=== PATIENT | female | born 1990 | race Caucasian/White ===

== ENCOUNTER 2017-04-08 14:48 | Emergency (ER) | payer MEDICAID, OTHER ==
[~2017-04-08] VITALS: Ht 162.6 cm; Wt 92.0 kg
[~2017-04-08 14:48] MED LIST: EMTR1TAB5 PO; PREN1CAP7 PO; [UNRECOGNIZED DRUG - CODE] CHEW
[2017-04-08 14:50] VITALS: BP 113/84; PULSE 100; RESP 20; TEMP 97.8; O2SAT 98
[2017-04-08] MEDS ORDERED: ACYC800T PO (15:19)
--- NOTE | 2017-04-08 15:22 | PD ---
HPI Chief Complaint: Skin Problem Time Seen by Provider: 15:06 Travel History International Travel<30 days: No Contact w/Intl Traveler<30days: No Traveled to known affect area: No History of Present Illness HPI PATIENT IS AND FOLLOWS UP WITH OB, HAS HIV WELL AND IS ALREADY ON MEDICATION,....TODAY COMES IN C/O RASH TO TRUNK PRESENT OVER LAST 3 DAYS, NO DISCHARGE PFSH Past Medical History Immune Disorder: Yes (hiv positive ) Immunizations Current: No ?: LMP: 26 weeks Past Surgical History Surgical History: No Previous Surgery Social History Alcohol Use: No Tobacco Use: No Substance Use: No Allergies-Medications (Allergen,Severity, Reaction): Coded Allergies: Codeine (Verified Allergy, Intermediate, UNKNOWN, 04/08/17) Reported Meds & Prescriptions Reported Meds & Active Scripts Active Acyclovir 800 Mg Tab 800 Mg PO 5 TIMES A DAY Citranatal [place] ( W/O Vit A W/ Fe Fumar) 27-1-260 Mg Cap 1 Cap PO DAILY Reported Isentress (Raltegravir) 25 Mg Chew 75 Mg CHEW BID Truvada (Emtricitabine-Tenofovir Disoproxil Fumarate) 100-150 Mg Tab 1 Tab PO DAILY Review of Systems Except as stated in HPI: all other systems reviewed are Neg Skin: Positive Rash Physical Exam Narrative GENERAL: SKIN: Warm and dry. ON RIGHT HEMITHORAX UNDER RIGHT BREAST AND ON BACK AT SAME LEVEL OF T8 HAD A VESICULOPAPULAR RASH C/W HERPES ZOSTER HEAD: Atraumatic. Normocephalic. EYES: Pupils equal and round. No scleral icterus. No injection or drainage. ENT: No nasal bleeding or discharge. Mucous membranes pink and moist. NECK: Trachea midline. No JVD. CARDIOVASCULAR: Regular rate and rhythm. RESPIRATORY: No accessory muscle use. Clear to auscultation. Breath sounds equal bilaterally. GASTROINTESTINAL: Abdomen soft, non-tender, nondistended. Hepatic and splenic margins not palpable. MUSCULOSKELETAL: Extremities without clubbing, cyanosis, or edema. No obvious deformities. NEUROLOGICAL: Awake and alert. No obvious cranial nerve deficits. Motor grossly within normal limits. Five out of 5 muscle strength in the arms and legs. Normal speech. PSYCHIATRIC: Appropriate mood and affect; insight and judgment normal. Data Data Last Documented VS Vital Signs Date Time Temp Pulse Resp B/P Pulse Ox O2 Delivery O2 Flow Rate FiO2 04/08/17 14:50 97.8 100 20 113/84 98 Room Air MDM Medical Decision Making Medical Screen Exam Complete: Yes Emergency Medical Condition: Yes Medical Record Reviewed: Yes Differential Diagnosis FUNGAL RASH V BACTERIAL V VIRAL Narrative Course CONFIRMED WITH PHARMACY THAT IT WAS SAFE TO USE ACYCLOVIR DURING , STATED IT WAS CATEGORY B, AND RELATIVELY SAFE. Diagnosis Primary Impression: ZOSTER Scripts Acyclovir 800 Mg Cqt528 Mg PO 5 TIMES A DAY #40 TAB Ref 0 Prov:Pedro Akins MD 04/08/17 Disposition: 01 DISCHARGE HOME Condition: Stable Pedro Akins MD Apr 08, 2017 15:22
== END 2017-04-08 15:53 | disposition home or self-care (01) ==
LOC: NEPD 14:48
DX: O98.712 Human immunodeficiency virus [HIV] disease complicating pregnancy, second trimester (principal); B20 Human immunodeficiency virus [HIV] disease; O98.512 Other viral diseases complicating pregnancy, second trimester; B02.9 Zoster without complications; Z3A.26 26 weeks gestation of pregnancy
CPT/HCPCS: 99283

== ENCOUNTER → 2017-05-16 | Outpatient (CLI) | payer MEDICAID ==
[~2017-05-16] MED LIST changes: +ACYC800T PO
== END ==
LOC: HPND 09:37
PROVIDERS: ATTEND Obstetrics & Gynecology
DX: O35.8XX0 Maternal care for other (suspected) fetal abnormality and damage, not applicable or unspecified (principal); O98.719 Human immunodeficiency virus [HIV] disease complicating pregnancy, unspecified trimester; O99.213 Obesity complicating pregnancy, third trimester; E66.9 Obesity, unspecified; Z68.34 Body mass index [BMI] 34.0-34.9, adult
CPT/HCPCS: 76811; 76818; 76820; 76821

== ENCOUNTER → 2017-05-23 | Emergency (ER) | payer OTHER, MEDICAID ==
[~2017-05-23] MED LIST changes: +LACTATED RINGER'S 1000 ML INJ 1,000 ML IV ONE; +TERBUTALINE INJ 1 MG/ML AMP ONE; +TERBUTALINE INJ 1 MG/ML AMP SQ ONE
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
[2017-05-23 14:14] VITALS: BP 118/84; PULSE 93; RESP 18
[2017-05-23 14:16] VITALS: BP 116/76; PULSE 92
== END | disposition home or self-care (01) ==
LOC: HOBED 11:06
DX: S13.4XXA Sprain of ligaments of cervical spine, initial encounter (principal); O47.03 False labor before 37 completed weeks of gestation, third trimester; M54.9 Dorsalgia, unspecified; O98.713 Human immunodeficiency virus [HIV] disease complicating pregnancy, third trimester; V49.60XA Unspecified car occupant injured in collision with unspecified motor vehicles in traffic accident, initial encounter; Z3A.32 32 weeks gestation of pregnancy; Z79.899 Other long term (current) drug therapy; Z88.5 Allergy status to narcotic agent
CPT/HCPCS: 96372; 96374; 99284; J3010; J3105; J7120

== ENCOUNTER 2017-06-28 13:33 | Emergency (ER) | payer MEDICAID ==
[~2017-06-28 13:33] MED LIST changes: -LACTATED RINGER'S 1000 ML INJ 1,000 ML IV ONE; -TERBUTALINE INJ 1 MG/ML AMP ONE; -TERBUTALINE INJ 1 MG/ML AMP SQ ONE
[2017-06-28 13:51] VITALS: RESP 16; TEMP 98
[2017-06-28 13:52] VITALS: BP 133/80; PULSE 99
--- NOTE | 2017-06-28 14:11 | PD ---
HPI Chief Complaint preop Date Seen: Jun 28, 2017 Time Seen: 13:54 Travel History International Travel<30 Days: No Contact w/Intl Traveler<30Days: No Known Affected Area: No History of Present Illness HPI Pt is a 27y/o G1 @ 37.5wks. She has PNC at [facility]. She presented today for c/s consult. Indication is breech. She has no complaints. No LOF, VB, ctx. +FM. is c/b HIV (diagnosed this preg, pt compliant with HAART, reports "undetectable VL"), IUGR (35wk <3%), and breech. Pt states that she was not counseled on the option of ECV. She is supposed to have a rpt growth scan tmw. Weeks Gestation: 37 Para: 0 : 1 Last Menstrual Period: Jun 28, 2017 History Past Medical History Narrative Medical HIV Obstetric History Obstetric History 1. current Past Surgical History Surgical History: No Previous Surgery Family History Family History: Negative Social History Alcohol Use: No Tobacco Use: No Substance Abuse: No Allergies-Medications (Allergen,Severity, Reaction): Coded Allergies: codeine (Unverified Allergy, Intermediate, UNKNOWN, 06/27/17) Home Meds Active Scripts Acyclovir (Acyclovir) 800 Mg Tab, 800 MG PO 5 TIMES A DAY for Mgmt Viral Infection, #40 TAB 0 Refills Prov:Pedro Akins MD 04/08/17 W/O Vit A W/ Fe Fumar (Citranatal [place]) 27-1-260 Mg Cap, 1 CAP PO DAILY for Nutritional Supplement, #60 CAP 11 Refills Prov:Shira Teixeira 02/14/17 Reported Medications Raltegravir (Isentress) 25 Mg Chew, 75 MG CHEW BID for Mgmt Viral Infection, # 180 TAB 0 Refills 02/14/17 Emtricitabine-Tenofovir Disoproxil Fumarate (Truvada) 100-150 Mg Tab, 1 TAB PO DAILY for Mgmt Viral Infection, #30 TAB 0 Refills 02/14/17 Review of Systems Except as stated in HPI: all other systems reviewed are Neg Physical Exam Vital Signs Date Time Temp Pulse Resp B/P (MAP) Pulse Ox O2 Delivery O2 Flow Rate FiO2 06/28/17 13:51 98.0 16 Narrative GENERAL: Well-nourished, well-developed patient. SKIN: Warm and dry. HEAD: Normocephalic and atraumatic. EYES: No scleral icterus. No injection or drainage. EXTREMITIES: No cyanosis. NEUROLOGICAL: Awake and alert. Motor and sensory grossly within normal limits. FHTs: 135, +accels, no decels, moderate variability, reactive TOCO: quiet Data Data Vital Signs Reviewed: Yes Orders Orders Vital Signs (Adult) .ON ADMISSION (06/28/17 13:47) ^ Labor Status (06/28/17 13:47) Us Ob Bpp Wo Nst Ua/Mca Dp Rpt (06/28/17 ) Group B Strep: Negative MDM Medical Record Reviewed: Yes Plan 27y/o @ 37.5wks with 1. IUGR -- 35.0wk scan was <3% -- rpt today -- MFM recs state to deliver 38-39wks; will discuss as I have traditionally delivered these pts at 37.0wks 2. breech -- variable lie; br at 35wks, vtx at 36, br at 37; rpt US today -- pt presented today for 1'c/s consult -- was counseled on R/B/A of ECV; specifically the risks included failure to vert, distress, placental abruption, PROM, and labor; benefits include ability to proceed with if successful; alternative is 1'CS; we also discussed that IUGR and maternal obesity are risk factors for failure; reviewed that if unsuccessful for distress, would proceed with c/s today; if successful, would likely induce today; pt would like to attempt ECV -- last PO intake was at 10:30am; NPO at this time 3. HIV -- dx'd this preg at 15wks -- has been compliant on HAART tx -- reports undetectable VL; records requested from Dr. Paulino -- literature states that if VL is undetectable, is safe; if CS planned and undetectable VL, preop AZT no longer required, but given very low risk and potential benefit, would continue to administer 4. IUP -- cat 1 tracing -- GBS neg -- on ppx acyclovir Diagnosis Diagnosis: Primary Impression: 37 weeks gestation of Additional Impressions: IUGR (intrauterine growth restriction) affecting care of mother HIV affecting , antepartum Breech presentation Izaiah Kendall MD Jun 28, 2017 14:11
[2017-06-28 14:45] VITALS: RESP 17
[2017-07-04] MEDS ORDERED: RALT400 PO (16:54)
[2017-07-06] MEDS ORDERED: IBUP-232 PO (14:26)
[2017-07-06] MEDS ORDERED: OXYC1TAB63 PO (14:27)
== END 2017-06-28 15:25 | disposition home or self-care (01) ==
LOC: HOBED 13:33
DX: O32.1XX0 Maternal care for breech presentation, not applicable or unspecified (principal); O36.5930 Maternal care for other known or suspected poor fetal growth, third trimester, not applicable or unspecified; O98.713 Human immunodeficiency virus [HIV] disease complicating pregnancy, third trimester; Z3A.37 37 weeks gestation of pregnancy
CPT/HCPCS: 76816; 76819; 76820; 76821; 99284